=== PATIENT | female | born 1930 | race Caucasian/White ===

== ENCOUNTER 2018-10-03 17:45 | Emergency (ER) | payer OTHER ==
[~2018-10-03] VITALS: Ht 162.6 cm; Wt 54.4 kg
[~2018-10-03 17:45] MED LIST: ACET500 PO; ALBU90OI INH; ALBU90OI6 INH; CEPH500 PO; CHLO25B; CHLO25B PO; CHOL10002 PO; CLOP75 PO; CYAN500; CYAN500 PO; DULERA 100 MCG/13 GM INH; DULO30 PO; ERGO400 PO; LORA1 PO; MECL25 PO; METO25ER PO; MIRT15 PO; MIRT15ST MM; OMEPRAZOLE MAGN20 MG PO; ONDA4 PO; ONDA4ODT MM; ONDA8ODT MM; PANT40 PO; POTCHL10ER; POTCHL10ER PO; POTCHL20ER PO; ROSU10TA PO; ROSUVASTATIN CAL5 MG PO; RXONDA4ODT MM; TRAM50 PO; VENL75; VENL75ER PO
[2018-10-03] MEDS ORDERED: FIBER LAX PO (18:12)
[2018-10-03] MEDS ORDERED: MIRT15 PO (18:12)
[2018-10-03] MEDS ORDERED: METO25ER PO (18:12)
[2018-10-03] MEDS ORDERED: DULERA 100 MCG/13 GM INH (18:12)
[2018-10-03] MEDS ORDERED: Vitamin B-121000 MCG PO (18:13)
[2018-10-03] MEDS ORDERED: VENL75ER PO (18:13)
[2018-10-03] MEDS ORDERED: POTCHL20ER PO (18:13)
[2018-10-03] MEDS ORDERED: OMEP20ER PO (18:13)
[2018-10-03 19:38] LABS: Source, Urine Clean Catch
[2018-10-03 19:40] LABS: Bilirubin, Urine Neg (Neg); Blood, Urine 1+ (Neg); Glucose Qualitative, Urine Neg (Neg); Ketones, Urine Neg (Neg); Leukocyte Esterase, Urine 2+ (Neg); Nitrite, Urine Pos (Neg); Protein, Urine 1+ (Neg); Specific Gravity, Urine 1.025 (1.003-1.022); Urobilinogen, Urine NORM (Normal)
[2018-10-03 19:45] LABS: Appearance, Urine Clear (Clear); Color, Urine Yellow (P-Yellow)
[2018-10-03 19:46] LABS: Bacteria Mod /hpf; Squamous Epithelial Cells Few /hpf (Few)
[2018-10-03] MEDS ORDERED: CEPH500 PO (20:18)
== END 2018-10-03 21:39 | disposition home or self-care (01) ==
LOC: ER 17:45
PROVIDERS: Emergency Medicine
DX: S01.81XA Laceration without foreign body of other part of head, initial encounter (principal); N39.0 Urinary tract infection, site not specified; W01.198A Fall on same level from slipping, tripping and stumbling with subsequent striking against other object, initial encounter; Z88.6 Allergy status to analgesic agent; Z79.899 Other long term (current) drug therapy; I10 Essential (primary) hypertension; E78.5 Hyperlipidemia, unspecified; K21.9 Gastro-esophageal reflux disease without esophagitis; Z86.73 Personal history of transient ischemic attack (TIA), and cerebral infarction without residual deficits
CPT/HCPCS: 12011; 70450; 72125; 73552; 81001; 87077; 87086; 87186; 96365-59; 96375-59; 99284-25; J0696; J2405